=== PATIENT | female | born 2000 | race Caucasian/White ===

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

== ENCOUNTER 2018-07-08 18:45 | Emergency (ER) | payer OTHER ==
[2018-07-08] MEDS ORDERED: Metoclopramide IV* 5 MG/ML 2 ML VIAL IV SLOW PU ONE (19:54)
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
[2018-07-08 20:18] LABS: Hematocrit 33 % (35-47); Hemoglobin 11.5 g/dl (12.0-16.0); Mean Corpuscular HGB Conc 34 g/dl (31-36); Mean Corpuscular Hemoglobin 32 pg (27-31); Mean Corpuscular Volume 92 fL (80-97); Mean Platelet Volume 7.8 um3 (7.4-10.4); Platelet Count 253 10^3/ul (150-450); Red Blood Count 3.65 10^6/ul (4.00-5.40); Red Cell Distribution Width 13 % (10.5-15); White Blood Count 9.5 10^3/ul (3.5-10.8)
[2018-07-08 20:33] LABS: EGFR Non-African American 128.8 (>60)
[2018-07-08 20:47] LABS: Urine Appearance Clear; Urine Blood Negative (Negative); Urine Color Straw; Urine Ketones Negative (Negative); Urine Protein Negative (Negative); Urine Specific Gravity 1.005 (1.010-1.030); Urine Urobilinogen Negative (Negative)
[2018-07-08 23:16] VITALS: BP 105/54
--- NOTE | 2018-07-09 07:59 | RAD ---
Indication: Cramping, . Real-time sonography of the was performed. There is a single intrauterine gestation in breech presentation. There is anterior placenta without evidence of placenta previa. heart activity is noted at 1 to 28 bpm. movement is noted. Amniotic fluid index is 18.8. The cervix is long and closed. The BPD measures 5.2 cm corresponding to gestational age of 21 weeks 5 days. Head circumference measures 20.01 cm corresponding to gestational age of 22 weeks 2 days. Abdominal circumference measures 18.3 cm corresponding to gestational age of 23 weeks 2 days. Femur length measures 3.6 cm corresponding to gestational age of 21 weeks 2 days. Estimated gestational age by today's initial ultrasound is 22 weeks 2 days. Estimated date of delivery is November 09, 2018. Estimated weight is 499 g. Images of the anatomy is limited. Evaluation of the maternal right lower quadrant demonstrates no evidence of abnormal fluid collections. IMPRESSION: Single intrauterine gestation with gestational age of 22 weeks 2 days. The cervix is closed. Amniotic fluid is within normal limits. No evidence of placenta previa.
== END 2018-07-08 23:17 | disposition home or self-care (01) ==
LOC: ED 18:45
DX: O26.892 Other specified pregnancy related conditions, second trimester (principal); R61 Generalized hyperhidrosis; R10.2 Pelvic and perineal pain; R11.0 Nausea; Z3A.22 22 weeks gestation of pregnancy; F17.210 Nicotine dependence, cigarettes, uncomplicated
CPT/HCPCS: 36415; 76815; 80053; 81003; 85027; 96374; 99283; J2765

== ENCOUNTER 2018-11-08 08:08 | Inpatient (IN) | payer OTHER ==
--- NOTE | 2018-11-08 10:41 | HP ---
General Information - Reason for Visit active labor - General Information Maternal Age: 18 Grav: 1 Para: 0 SAB: 0 IEA: 0 Estimated Due Date: 11/15/18 Determined By: Early Ultrasound Maternal Blood Type and Rh: A Positive - Results this Serology/RPR Result: Non-Reactive Rubella Result: Immune HBsAg Result: Negative HIV Result: Negative GBS Culture Result: Negative Past Medical History Pertinent Past Medical History: Non-Contributory Pertinent Past Surgical History: See Records - tonsillectomy w adenoidectomy 2014 Pertinent Family History: See Records - asthma, colon CA, COPD - Antepartal Records Antepartal Records: Reviewed, Complicated by: - + chlamydia in JUVE at 36wks negative Review of Systems Constitutional: Uncomfortable CV Complaint: No Respiratory: Shortness of Breath: No Gastrointestinal: Nausea, Vomiting Genitourinary: No Dysuria, No Bleeding, No Leaking Fluid Musculoskeletal: Contractions Neurological: No Headache, No Visual Changes Movement: Normal Exam Allergies/Adverse Reactions: Allergies No Known Allergies Allergy (Verified 07/08/18 19:50) T: 99.6, P:76, R:16, BP: 122/72, O2:100 - Measurements Height: 5 ft 3 in Weight: 135 lb Weight in lbs: [id number] Body Mass Index (BMI): 23.9 Pre- Weight: 98 lb Weight Gained This : 37 lbs and 0 ozs - Exam Breast: Breast Exam Deferred CVA: No CVA Tenderness Extremities: No Edema Heart: Normal Rhythm/Heart Sounds HEENT: No Significant Findings Lungs: Clear Bilaterally Rectal: Rectal Exam Deferred Reflexes: DTR 2+ Thyroid: No Thyromegaly - Abdominal Exam Abdomen Exam: Non-Tender - Ultrasound/Biophysical Profile Ultrasound Status: Not Done Targeted Exam Findings Cervical Exam: 7cm Effacement: 90% Station: 0 Presenting Part: Vertex Membrane Status: Bulging Bleeding/Discharge: Bloody Show EFM Findings - External Monitor Findings Baseline Heart Rate: 150 External Monitor Findings: Accelerations Present, No Pattern of Variable or Late Decelerations, Variability Moderate, Baseline Stable Contractions: Regular, Moderate, 45-90 Seconds Contraction Frequency: 2-3 min Assessment/Plan - Assessment 18 y.o. , active labor - Plan Plan: Admit - Anticipate Vaginal Delivery Plan Comment: Pt requests pain mgmt - Date/Time of Admission Date of Admission: 11/08/18 Time of Admission: 10:00
[2018-11-08] MEDS ORDERED: OBEPIDURAL* 250 ML EPIDURAL ONE (10:50)
[2018-11-08 10:55] LABS: ABS Basophils 0.1 10^3/ul (0-0.2); ABS Eosinophils 0 10^3/ul (0-0.6); ABS Lymphocytes 1.6 10^3/ul (1.0-4.8); ABS Monocytes 0.8 10^3/ul (0-0.8); ABS Nucleated RBC 0 10^3/ul; Eosinophil % 0.1 %; Hematocrit 37 % (35-47); Lymphocyte % 7.1 %; Mean Corpuscular HGB Conc 33 g/dl (31-36); Mean Corpuscular Hemoglobin 30 pg (27-31); Mean Corpuscular Volume 91 fL (80-97); Mean Platelet Volume 8.4 fL (7.4-10.4); Nucleated Red Blood Cells % 0; Platelet Count 310 10^3/ul (150-450); Red Cell Distribution Width 14 % (10.5-15); White Blood Count 22.5 10^3/ul (3.5-10.8)
[2018-11-08] MEDS ORDERED: EPHEDrine (Pressors)* 50 MG/ML VIAL IV PUSH PRN (11:22)
[2018-11-08] MEDS ORDERED: Famotidine TAB* 20 MG PO PRN (11:22)
[2018-11-08] MEDS ORDERED: Sodium Citrate/Citric Acid* 15 ML UDC PO PRN (11:22)
[2018-11-08] MEDS ORDERED: Phenylephrine IV* 40 MCG/ML 10 ML SYRINGE IV PUSH PRN (11:22)
[2018-11-08] MEDS ORDERED: OBEPIDURAL* 250 ML EPIDURAL SCH (12:00)
[2018-11-08] MEDS ORDERED: Calcium Carbonate CHEW TAB* 500 MG (TUMS) ONE (12:35)
[2018-11-08] MEDS ORDERED: Calcium Carbonate CHEW TAB* 500 MG (TUMS) PO PRN (12:42)
[2018-11-08] MEDS ORDERED: Lidocaine 2% VISCOUS* 15 ML UDC ONE (15:56)
[2018-11-08] MEDS ORDERED: Oxytocin in LR* 20 UNITS/1,000 ML BAG IVPB ONE (16:08)
[2018-11-08] MEDS ORDERED: Misoprostol TAB* 200 MCG PR ONE (16:25)
[2018-11-08] MEDS ORDERED: Glycerin ADULT SUPP PR PRN (16:25)
[2018-11-08] MEDS ORDERED: Witch Hazel PAD* JAR TOPICAL PRN (16:25)
--- NOTE | 2018-11-08 16:30 | PROCNOTE ---
[facility] OB: Delivery Note - Delivery A Date of : 11/08/18 Time of : 16:02 Sex: Male Gestational Age in Weeks and Days at Delivery: 39 Weeks and 0 Days Delivery Method: Spontaneous Vaginal Labor: Spontaneous Amniotic Fluid: Clear Estimated Blood Loss: 350 Anesthesia/Analgesia: CEI for Labor Delivered By: Elvira Mcintyre - Nursery Level of Nursery: Regular/Bedside - Perineum Perineal Injury: Periurethral Laceration Perineal Repair: By Delivering Practioner - Events Delivery Events of Note: Pitocin Only After Delivery
[2018-11-08] MEDS ORDERED: Oxytocin in LR* 20 UNITS/1,000 ML BAG IVPB SCH (17:00)
[2018-11-08] MEDS ORDERED: Simethicone TAB* 80 MG TAB.CHEW PO SCH (17:30)
[2018-11-08] MEDS: Ibuprofen TAB* 600 MG PO PRN (18:11)
[2018-11-08] MEDS ORDERED: Gentamicin ADULT (*) 40 MG/ML VIAL IVPB ONE (19:39)
[2018-11-08] MEDS ORDERED: Gentamicin ADULT (*) 300 MG in NS 0.9% 100 ML* 100 ML IVPB ONE (20:00)
[2018-11-08] MEDS: Acetaminophen TAB* 325 MG PO PRN (20:19)
[2018-11-08] MEDS: Clindamycin 900 MG/D5W BAG(*) 900 MG/50 ML BAG IVPB SCH (21:02)
[2018-11-08] MEDS: Docusate CAP* 100 MG PO SCH (21:08)
[2018-11-09] MEDS: Clindamycin 900 MG/D5W BAG(*) 900 MG/50 ML BAG IVPB SCH ×4 (05:17→21:33)
[2018-11-09 07:23] LABS: Hematocrit 32 % (35-47); Hemoglobin 10.6 g/dl (12.0-16.0); Mean Corpuscular HGB Conc 33 g/dl (31-36); Mean Corpuscular Hemoglobin 31 pg (27-31); Mean Corpuscular Volume 92 fL (80-97); Mean Platelet Volume 8.1 fL (7.4-10.4); Platelet Count 244 10^3/ul (150-450); Red Blood Count 3.46 10^6/ul (4.00-5.40); Red Cell Distribution Width 14 % (10.5-15); White Blood Count 20.3 10^3/ul (3.5-10.8)
[2018-11-09 08:14] LABS: ABS Basophils 0.1 10^3/ul (0-0.2); ABS Eosinophils 0 10^3/ul (0-0.6); ABS Lymphocytes 1.7 10^3/ul (1.0-4.8); ABS Monocytes 1.7 10^3/ul (0-0.8); ABS Neutrophils 16.8 10^3/ul (1.5-7.7); ABS Nucleated RBC 0 10^3/ul; Eosinophil % 0.1 %; Lymphocyte % 8.2 %; Nucleated Red Blood Cells % 0
[2018-11-09] MEDS ORDERED: Ferrous Gluconate TAB* 324 MG TAB PO SCH (09:00)
[2018-11-09] MEDS: Ibuprofen TAB* 600 MG PO PRN ×2 (09:22→16:40)
[2018-11-09] MEDS: Docusate CAP* 100 MG PO SCH ×3 (09:22→20:57)
[2018-11-09] MEDS: Dibucaine 1% 28.35 GM TUBE PR PRN (09:30)
[2018-11-09] MEDS: Acetaminophen TAB* 325 MG PO PRN (13:45)
[2018-11-10] MEDS: Dibucaine 1% 28.35 GM TUBE PR PRN ×2 (03:08→11:09)
[2018-11-10] MEDS: Ibuprofen TAB* 600 MG PO PRN ×2 (03:48→11:09)
[2018-11-10 08:12] VITALS: BP 103/59
[2018-11-10] MEDS: Docusate CAP* 100 MG PO SCH (09:02)
== END 2018-11-10 12:31 | disposition home or self-care (01) | DRG 560 ==
LOC: MCHOBOUT 08:08 → MCHOB 08:35
PROVIDERS: ADMIT Midwife; ATTEND Midwife
PROC: 10E0XZZ Delivery of Products of Conception, External Approach (ICD-10-PCS; principal; 2018-11-08)
PROC: 10907ZC Drainage of Amniotic Fluid, Therapeutic from Products of Conception, Via Natural or Artificial Opening (ICD-10-PCS; 2018-11-08)
PROC: 0KQM0ZZ Repair Perineum Muscle, Open Approach (ICD-10-PCS; 2018-11-08)
DX: O71.82 Other specified trauma to perineum and vulva (principal); Z37.0 Single live birth; Z3A.39 39 weeks gestation of pregnancy
CPT/HCPCS: 36415; 85025; 86850; 86900; 86901; A9270-GY; J1580

== ENCOUNTER 2019-07-06 11:27 | Emergency (ER) | payer MEDICAID, OTHER ==
[2019-07-06 11:35] VITALS: BP 118/72
[2019-07-06] MEDS ORDERED: guaiFENesin ER TAB 600 MG PO ONE (11:54)
[2019-07-06] MEDS ORDERED: Ibuprofen TAB* 600 MG PO ONE (11:54)
--- NOTE | 2019-07-06 12:15 | ED ---
Throat Pain/Nasal Congestion - HPI Summary HPI Summary: This pt is a 18 Y/O F presenting to [facility] with her family and a CC of a sore throat and losing her voice. Patient states this began 3 days ago with a sore throat and now has congestion, and has a hoarse voice. She states that she also has a productive cough and is feeling relatively congested. She states that the pain increases when she swallows but states that it hasnt made eating any harder. No trouble breathing or trouble swallowing. She denies any fever, N/V, CP, and headaches. She has no alleviating factors. She had a tonsillectomy in 2016. - History of Current Complaint Chief Complaint: EDThroatPain Time Seen by Provider: 07/06/19 11:54 Hx Obtained From: Patient Onset/Duration: Sudden Onset, Lasting Days - 4, Still Present, Worse Since - today Severity: Mild Associated Signs And Symptoms: Positive: Negative - fever, N/V, CP, and headaches, Hoarseness, Sinus Discomfort Cough: Productive Related History: Smoking - E-cigs, previous smoker - Allergies/Home Medications Allergies/Adverse Reactions: Allergies Allergy/AdvReac Type Severity Reaction Status Date / Time No Known Allergies Allergy Verified 01/29/19 23:02 PMH/Surg Hx/FS Hx/Imm Hx Previously Healthy: No Endocrine/Hematology History: Denies: Hx Diabetes, Hx Thyroid Disease Cardiovascular History: Denies: Hx Congestive Heart Failure, Hx Hypertension Respiratory History: Reports: Hx Asthma Denies: Hx Chronic Obstructive Pulmonary Disease (COPD) GI History: Denies: Hx Ulcer History: Denies: Hx Renal Disease Sensory History: Denies: Hx Contacts or Glasses, Hx Deafness, Hx Hearing Aid Opthamlomology History: Denies: Hx Contacts or Glasses EENT History: Reports: Other - tonsillectomy Neurological History: Denies: Hx Dementia Psychiatric History: Denies: Hx Autism - Surgical History Surgery Procedure, Year, and Place: TONSILLECTOMY 2016 - Immunization History Date of Tetanus Vaccine: utd Date of Influenza Vaccine: none Immunizations Up to Date: Yes Infectious Disease History: No Infectious Disease History: Denies: Hx Clostridium Difficile, Hx Hepatitis, Hx Human Immunodeficiency Virus (HIV), Hx of Known/Suspected MRSA, Hx Shingles, Hx Tuberculosis, Hx Known/ Suspected VRE, Hx Known/Suspected VRSA, History Other Infectious Disease, Traveled Outside the [place] in Last 30 Days - Family History Known Family History: Positive: Cardiac Disease - paternal grandfather - Social History Occupation: Unemployed Lives: With Family Alcohol Use: None Substance Use Type: Reports: None Hx Tobacco Use: Yes Smoking Status (MU): Former Smoker Type: Cigarettes, eCigarettes - current Amount Used/How Often: 3 CIG/DAY Review of Systems Negative: Fever Positive: Sore Throat Positive: Cough - productive Negative: Vomiting, Nausea Negative: Headache All Other Systems Reviewed And Are Negative: Yes Physical Exam - Summary Physical Exam Summary: General: Well appearing, no distress HEENT: Mild errythema posterior oral pharynx, s/p tonsillectomy, no maxillary sinus tenderness, PERRL Cardiovascular: Skin is well perfused Pulmonary: No respiratory distress, no tachypnea, clear to auscultation Abdomen: Non-distended Skin: Warm, pink, dry MSK: No edema Psych: Normal affect Neuro: A&Ox3 Triage Information Reviewed: Yes Vital Signs On Initial Exam: Initial Vitals Temp Pulse Resp BP Pulse Ox 99.1 F 115 18 118/72 96 07/06/19 11:33 07/06/19 11:33 07/06/19 11:33 07/06/19 11:33 07/06/19 11:33 Vital Signs Reviewed: Yes Diagnostics - Vital Signs Vital Signs Temp Pulse Resp BP Pulse Ox 07/06/19 11:33 99.1 F 115 18 118/72 96 - Laboratory Lab Statement: Any lab studies that have been ordered have been reviewed, and results considered in the medical decision making process. EENT Course/Dx - Course Course Of Treatment: 18-year-old female with upper respiratory symptoms for 3 days. Physical exam well-appearing female, status post tonsillectomy, mild erythema of the posterior pharynx. No difficulty in breathing or trouble swallowing, no trismus. Treat conservatively w motrin, mucinex both low risk in breast feeding. - Diagnoses Provider Diagnoses: Sore throat (viral), Upper respiratory infection Discharge - Sign-Out/Discharge Documenting (check all that apply): Patient Departure - discharge Patient Received Moderate/Deep Sedation with Procedure: No - Discharge Plan Condition: Stable Disposition: HOME Patient Education Materials: Pharyngitis (ED), Upper Respiratory Infection (ED) Referrals: Loly Mahajan MD [Primary Care Provider] - 2 Days Additional Instructions: You were seen in the emergency department for upper respiratory symptoms. You can Motrin in breast-feeding which has been proven safe. You can take Mucinex as well which is low risk in breast feeding. If any studies were not completed at the time of discharge you will be called with the relevant results. Please follow up with your primary care doctor in next 2-3 days and return to emergency department for worsening or concerning symptoms. - Billing Disposition and Condition Condition: STABLE Disposition: Home - Attestation Statements Document Initiated by Honey: Yes Documenting Scribe: Jose Buckner Provider For Whom Honey is Documenting (Include Credential): Sherri Schroeder MD Scribe Attestation: Jose Petit, scribed for Sherri Schroeder MD on 07/06/19 at 1232. Scribe Documentation Reviewed: Yes Provider Attestation: The documentation as recorded by the Jose rangel accurately reflects the service I personally performed and the decisions made by Sherri montez MD Status of Scribe Document: Viewed
== END 2019-07-06 12:28 | disposition home or self-care (01) ==
LOC: ED 11:27
DX: J02.9 Acute pharyngitis, unspecified (principal); J06.9 Acute upper respiratory infection, unspecified; J45.909 Unspecified asthma, uncomplicated; F17.290 Nicotine dependence, other tobacco product, uncomplicated
CPT/HCPCS: 99282; A9270-GY

== ENCOUNTER 2019-07-07 13:40 | Emergency (ER) | payer OTHER ==
[2019-07-07 13:50] VITALS: BP 108/75
== END 2019-07-07 15:40 | disposition left against medical advice (07) ==
LOC: ED 13:40
DX: R09.81 Nasal congestion (principal); R05 Cough; Z53.21 Procedure and treatment not carried out due to patient leaving prior to being seen by health care provider

== ENCOUNTER 2019-07-07 14:57 | Emergency (ER) | payer OTHER ==
[2019-07-07 15:11] VITALS: BP 100/50
[2019-07-07] MEDS ORDERED: predniSONE TAB* 20 MG PO ONE (15:17)
[2019-07-07] MEDS ORDERED: Albuterol HFA INHALER* 8 gm MDI INH ONE (15:18)
--- NOTE | 2019-07-07 15:23 | UC ---
Respiratory Complaint HPI - HPI Summary HPI Summary: 18 yo female with 4-5 days of nasal congestion/post nasal drip/facial pressure and cough chest tight hx asthma no f/c no n/v/d - History of Current Complaint Chief Complaint: UCRespiratory Stated Complaint: HEADACHE , COUGH, Time Seen by Provider: 07/07/19 15:04 Hx Obtained From: Patient Hx Last Menstrual Period: 1 week ago Onset/Duration: Gradual Onset, Lasting Days Timing: Constant Severity Initially: Mild Severity Currently: Moderate Pain Intensity: 5 Pain Scale Used: 0-10 Numeric Character: Cough: Productive - at times Aggravating Factors: Nothing Alleviating Factors: Nothing Associated Signs And Symptoms: Positive: Wheezing, Nasal Congestion, Hoarseness , Sinus Discomfort - Allergies/Home Medications Allergies/Adverse Reactions: Allergies Allergy/AdvReac Type Severity Reaction Status Date / Time No Known Allergies Allergy Verified 07/07/19 15:11 Home Medications: Home Medications [id number] ER TAB [Mucinex*] 600 mg PO DAILY 07/07/19 [History Confirmed ] PMH/Surg Hx/FS Hx/Imm Hx Previously Healthy: Yes Respiratory History: Asthma - Surgical History Surgical History: Yes Surgery Procedure, Year, and Place: TONSILLECTOMY 2016 - Family History Known Family History: Positive: Cardiac Disease - paternal grandfather - Social History Alcohol Use: None Substance Use Type: None Smoking Status (MU): Light Every Day Tobacco Smoker Type: Cigarettes, eCigarettes Amount Used/How Often: 3 CIG/DAY - Immunization History Most Recent Influenza Vaccination: Unknown Most Recent Pneumonia Vaccination: Unknown Vaccination Up to Date: Yes Review of Systems All Other Systems Reviewed And Are Negative: Yes Constitutional: Positive: Fatigue Skin: Positive: Negative Eyes: Positive: Negative ENT: Positive: Sore Throat, Nasal Discharge, Sinus Congestion, Sinus Pain/ Tenderness Respiratory: Positive: Cough Cardiovascular: Positive: Negative Gastrointestinal: Positive: Negative Genitourinary: Positive: Negative Motor: Positive: Negative Neurovascular: Positive: Negative Musculoskeletal: Positive: Negative Neurological: Positive: Negative Psychological: Positive: Negative Physical Exam Triage Information Reviewed: Yes Appearance: Well-Appearing, No Pain Distress, Well-Nourished Vital Signs: Initial Vital Signs Temp 99.0 F 07/07/19 15:05 Pulse 97 07/07/19 15:05 Resp 17 07/07/19 15:05 BP 100/50 07/07/19 15:05 Pulse Ox 97 07/07/19 15:05 Vital Signs Reviewed: Yes Eyes: Positive: Conjunctiva Clear ENT: Positive: Hearing grossly normal, Pharynx normal, Nasal congestion, TMs normal, Hoarse voice, Sinus tenderness - sl, Uvula midline. Negative: Nasal drainage, Tonsillar swelling, Tonsillar exudate, Trismus, Muffled voice Neck: Positive: Supple, Nontender, No Lymphadenopathy Respiratory: Positive: Lungs clear, Normal breath sounds, No respiratory distress, Wheezing - with forced expiration Cardiovascular: Positive: RRR, No Murmur Musculoskeletal: Positive: ROM Intact, No Edema Neurological: Positive: Alert Psychological Exam: Normal Skin Exam: Normal Respiratory Course/Dx - Differential Dx/Diagnosis Provider Diagnosis: Viral URI with cough, Laryngitis, Bronchospasm Discharge - Sign-Out/Discharge Documenting (check all that apply): Patient Departure All imaging exams completed and their final reports reviewed: No Studies - Discharge Plan Condition: Stable Disposition: HOME Patient Education Materials: Laryngitis (ED), Bronchospasm (ED) Referrals: Loly Mahajan MD [Primary Care Provider] - 5 Days Additional Instructions: Recheck for new or worsening symptoms rest fluids - Billing Disposition and Condition Condition: STABLE Disposition: Home
== END 2019-07-07 15:34 | disposition home or self-care (01) ==
LOC: UCEAST 14:57
DX: J06.9 Acute upper respiratory infection, unspecified (principal); J04.0 Acute laryngitis; J98.01 Acute bronchospasm; J45.909 Unspecified asthma, uncomplicated; F17.210 Nicotine dependence, cigarettes, uncomplicated
CPT/HCPCS: 99212; A9270-GY; G0463; J7512

== ENCOUNTER 2020-01-22 18:04 | Emergency (ER) | payer OTHER ==
--- OUTSIDE RECORDS SUMMARY | 2020-01-22 18:07 | XMS REPORT | Summary of Care ---
:2000 Author Organization [facility] Address [address] [facility] [place] [address] Care Team Providers Name Role Phone Loly Mahajan Primary Care Provider Reason for Visit Reason Comments Follow Up 3mth to [facility], stated has been getting headache since being put on this BC Encounter Details Date Type Department Care Team Description 01/12/2020 Office Visit Usha Mahajan, Pelvic pain (Primary Dx); Practice MD Loly Chronic nonintractable headache, unspecified headache type [address] [place] [address] [place] [address] [phone] Allergies Active Allergy Reactions Severity Noted Date Comments Tramadol GI Reaction 12/27/2015 Nausea documented as of this encounter (statuses as of 01/12/2020) Medications Medication Sig Dispensed Refills Start Date End Date Status albuterol HFA Take 2 Puffs by 1 Inhaler 5 07/09/2019 Active (VENTOLIN HFA) 108 inhalation EVERY (90 Base) MCG/ACT FOUR HOURS Inhalation Aero NEEDED (SOB). SolnIndications: Mild intermittent asthma without complication Norgestimate-Ethin Take 1 Tab by 28 Tab 3 10/22/2019 Active yl Estradiol mouth DAILY. (ORTHO TRI-CYCLEN, 28,) 0.18/0.215/0.25 MG-35 MCG Oral Tab Norethindrone, take 1 tablet by 0 07/31/2019 Discontinued Contraceptive, mouth once daily 0 0.35 MG Oral Tab AT THE SAME TIME EACH DAY -TAKE EVERY PILL IN THE PACKAGE documented as of this encounter (statuses as of 01/12/2020) Active Problems Problem Noted Date Abdominal pain 09/24/2016 documented as of this encounter (statuses as of 01/12/2020) Immunizations Name Administration Dates Next Due Influenza (IM) Preservative Free 10/12/2019 TDAP Vaccine 08/17/2018 documented as of this encounter Social History Tobacco Use Types Packs/Day Years Used Date Current Some Day Smoker Cigarettes 0.1 1 Smokeless Tobacco: Never Used Alcohol Use Drinks/Week oz/Week Comments Not Asked 0 Standard drinks or equivalent 0.0 Sex Assigned at Date Recorded Not on file documented as of this encounter Last Filed Vital Signs Vital Sign Reading Time Taken Comments Blood Pressure 120/60 01/12/2020 10:50 AM EST Pulse 77 01/12/2020 10:50 AM EST Temperature 36.9 01/12/2020 10:50 AM C (98.5 EST F) Respiratory Rate - - Oxygen Saturation 99% 01/12/2020 10:50 AM EST Inhaled Oxygen Concentration - - Weight 50.3 kg (110 lb 14.4 oz) 01/12/2020 10:50 AM EST Height 160 cm (5' 3") 01/12/2020 10:50 AM EST Body Mass Index 19.65 01/12/2020 10:50 AM EST documented in this encounter Patient Instructions Patient InstructionsLoly Mahajan MD - 01/12/2020 10:40 AM EST1. Schedule physical with PAP smear 2. Please read about HPV vaccination Patient Education Human Papillomavirus (HPV) Vaccine The Basics Written by the doctors and editors at [facility] What is the human papillomavirus (HPV) vaccine?The HPV vaccine helps keep people from getting infected with a germ called "human papillomavirus ," or "HPV." Vaccines can prevent certain serious or deadly infections. They work by preparing the body to fight the germs that cause the infections. Vaccines are also called "vaccinations" or "immunizations." Why should I get the HPV vaccine?The HPV vaccine can help keep you from getting an HPV infection. There are different types of HPV, which can lead to different problems. Some of these problems can be serious: An HPV infection in the genitals can cause cancer of the cervix (cervical cancer) or vagina (vaginal cancer) in women (figure 1) and cancer of the penis ( penile cancer) in men. Other types of HPV can cause genital warts in women and men. An HPV infection around the anus can cause cancer of the anus (anal cancer ) in women and men. An HPV infection in the mouth and throat can cause cancer of the mouth and throat in women and men. Most people who have an HPV infection in the genitals or mouth and throat never have problems with cancer. Still, it is hard to know which people will get cancer after an HPV infection. The HPV vaccineis a good way to prevent getting infected in the first place. How can people get infected with HPV?People can get infected with HPV if their mouth or genitals touch the genitals of someone who is infected. This mainly happens through oral, vaginal, or anal sex. But HPV can also be spread through close [id number]-[id number] contact, even without having sex. Are different HPV vaccines available?Yes, 3 different HPV vaccines are available. But they are not all available everywhere, so the one you get will depend on where you live. All HPV vaccines come in shots. The dosing for the shots depends on the person's age: People younger than 15 should get 2 doses, at least 6 months apart. People 15 and older should get 3 doses over 6 months. At what age do people get the HPV vaccine?Most doctors recommend that people get the HPV vaccine at age 11 or 12. But people can get the vaccine any time from age 9 to 26. Women shouldnot get the vaccine if they are . The HPV vaccine works best when it is given before a person gets infected with HPV. The HPV vaccine can't cure an HPV infection that a person already has. That 's why it is better to get the HPV vaccinebefore you have sex for the first time. If you have already had sex, talk with your doctor or nurse.He or she might recommend that you get the HPV vaccine anyway, because it could still help you. What side effects can the HPV vaccine cause?The HPV vaccine can cause redness, swelling, or soreness where the shot was given. It can also cause people to pass out, but this is uncommon. To make sure that this doesn't happen, your doctor or nurse will have you stay on the exam table for a few minutes after the shot. Does the HPV vaccine always work?The vaccine is very good at preventing the types of HPV infection that can cause cervical and vaginal cancer in women. It might lower the risk of othertypes of cancer, too. The vaccine is also very good at preventing the types of HPV that cause genital warts. The vaccine is not perfect. In some cases, people who get it can still get an HPV infection. But it is still the best way to lower the risk of HPV. Does the HPV vaccine prevent other diseases you catch through sex? No. The HPV vaccine does not keep people from getting or spreading other diseases that are spread through sex. To keepfrom getting or spreading a disease that is spread through sex, you should always use a condom. Do I need to be checked for cervical cancer if I get the vaccine? Yes. All women, including those who get the HPV vaccine, should be checked on a routine schedule for cervical cancer. Most women are checked using a test called a "pap smear" starting at age 21. All topics are updated as new evidence becomes available and our peer review process is complete. This topic retrieved from [employer] on: Oct 05, 2019. Topic 30701 Version 12.0 Release: 27.4.5 - C27.318 ?2019?[employer] and/or its affiliates.?All rights reserved. figure 1: Female reproductive anatomy These are the internal organs that make up a woman's reproductive system. Graphic 86533 Version 5.0 Consumer Information Use and Disclaimer This information is not specific medical advice and does not replace information you receive from your health care provider. This is only a brief summary of general information. It does NOT include allinformation about conditions, illnesses, injuries, tests, procedures, treatments, therapies, discharge instructions or life-style choices that may apply to you. You must talk with your health care provider for complete information about your health and treatment options. This information should not beused to decide whether or not to accept your health care provider's advice, instructions or recommendations. Only your health care provider has the knowledge and training to provide advice that is right for you.The use of [employer] content is governed by the [employer] Terms of Use. 2019 [employer]. All rights reserved. Copyright ?2019?[employer] and/or its affiliates.?All rights reserved. documented in this encounter Progress Notes Loly Mahajan MD - 01/12/2020 10:40 AM EST Patient: Araceli Mason Date of Service: 01/12/2020 Subjective: Araceli Mason is a 19-y.o. female who presents for Chief Complaint Patient presents with ? Follow Up 3mth to [facility], stated has been getting headache since being put on this BC Patient comes 3 months follow up after starting BCP for history of ovarian cysts No other episodes of pelvic pain Noticed more frequent mild headaches since started the pills BP is normal. No breakthrough bleedings No past medical history on file. Outpatient Medications as of 01/12/2020 Medication Sig Dispense Refill ? albuterol HFA (VENTOLIN HFA) 108 (90 Base) MCG/ACT Inhalation Aero Soln Take 2 Puffs by inhalation EVERY FOUR HOURS NEEDED (SOB). 1 Inhaler 5 ? Norgestimate-Ethinyl Estradiol (ORTHO TRI-CYCLEN, 28,) 0.18/0.215/0.25 MG-35 MCG Oral Tab Take 1 Tab by mouth DAILY. 28 Tab 3 No current facility-administered medications on file as of 01/12/2020. Allergies Allergen Reactions ? Tramadol GI Reaction Nausea Review of Systems: All remaining review of systems was negative. Objective: BP 120/60 (BP Location: Left arm, Patient Position: Sitting) Pulse 77 Temp 98.5 F (36.9 C) Ht 5' 3" (1.6 m) Wt 110 lb 14.4 oz (50.3 kg) SpO2 99% BMI 19.65 kg/m2 General appearance: alert, well appearing, and in no distress. Neurological exam reveals alert, oriented, normal speech, no focal findings or movement disorder noted. ICD-9-CM ICD-10-CM 1. Pelvic pain Resoled on BCP [id number] R10.2 2. Chronic nonintractable headache, unspecified headache type Patient doesn't want to change to lower estrogen BCP in this point Wants to wait 784.0 R51 Patient Instructions 1. Schedule physical with PAP smear 2. Please read about HPV vaccination Patient Education Human Papillomavirus (HPV) Vaccine The Basics Written by the doctors and editors at [employer] What is the human papillomavirus (HPV) vaccine?The HPV vaccine helps keep people from getting infected with a germ called "human papillomavirus ," or "HPV." Vaccines can prevent certain serious or deadly infections. They work by preparing the body to fight the germs that cause the infections. Vaccines are also called "vaccinations" or "immunizations." Why should I get the HPV vaccine?The HPV vaccine can help keep you from getting an HPV infection. There are different types of HPV, which can lead to different problems. Some of these problems can be serious: An HPV infection in the genitals can cause cancer of the cervix (cervical cancer) or vagina (vaginal cancer) in women (figure 1) and cancer of the penis ( penile cancer) in men. Other types of HPV can cause genital warts in women and men. An HPV infection around the anus can cause cancer of the anus (anal cancer ) in women and men. An HPV infection in the mouth and throat can cause cancer of the mouth and throat in women and men. Most people who have an HPV infection in the genitals or mouth and throat never have problems with cancer. Still, it is hard to know which people will get cancer after an HPV infection. The HPV vaccineis a good way to prevent getting infected in the first place. How can people get infected with HPV?People can get infected with HPV if their mouth or genitals touch the genitals of someone who is infected. This mainly happens through oral, vaginal, or anal sex. But HPV can also be spread through close [id number]-[id number] contact, even without having sex. Are different HPV vaccines available?Yes, 3 different HPV vaccines are available. But they are not all available everywhere, so the one you get will depend on where you live. All HPV vaccines come in shots. The dosing for the shots depends on the person's age: People younger than 15 should get 2 doses, at least 6 months apart. People 15 and older should get 3 doses over 6 months. At what age do people get the HPV vaccine?Most doctors recommend that people get the HPV vaccine at age 11 or 12. But people can get the vaccine any time from age 9 to 26. Women shouldnot get the vaccine if they are . The HPV vaccine works best when it is given before a person gets infected with HPV. The HPV vaccine can't cure an HPV infection that a person already has. That 's why it is better to get the HPV vaccinebefore you have sex for the first time. If you have already had sex, talk with your doctor or nurse.He or she might recommend that you get the HPV vaccine anyway, because it could still help you. What side effects can the HPV vaccine cause?The HPV vaccine can cause redness, swelling, or soreness where the shot was given. It can also cause people to pass out, but this is uncommon. To make sure that this doesn't happen, your doctor or nurse will have you stay on the exam table for a few minutes after the shot. Does the HPV vaccine always work?The vaccine is very good at preventing the types of HPV infection that can cause cervical and vaginal cancer in women. It might lower the risk of othertypes of cancer, too. The vaccine is also very good at preventing the types of HPV that cause genital warts. The vaccine is not perfect. In some cases, people who get it can still get an HPV infection. But it is still the best way to lower the risk of HPV. Does the HPV vaccine prevent other diseases you catch through sex? No. The HPV vaccine does not keep people from getting or spreading other diseases that are spread through sex. To keepfrom getting or spreading a disease that is spread through sex, you should always use a condom. Do I need to be checked for cervical cancer if I get the vaccine? Yes. All women, including those who get the HPV vaccine, should be checked on a routine schedule for cervical cancer. Most women are checked using a test called a "pap smear" starting at age 21. All topics are updated as new evidence becomes available and our peer review process is complete. This topic retrieved from [employer] on: Oct 05, 2019. Topic 39298 Version 12.0 Release: 27.4.5 - C27.318 ?2019?[employer]. and/or its affiliates.?All rights reserved. figure 1: Female reproductive anatomy These are the internal organs that make up a woman's reproductive system. Graphic 56411 Version 5.0 Consumer Information Use and Disclaimer This information is not specific medical advice and does not replace information you receive from your health care provider. This is only a brief summary of general information. It does NOT include allinformation about conditions, illnesses, injuries, tests, procedures, treatments, therapies, discharge instructions or life-style choices that may apply to you. You must talk with your health care provider for complete information about your health and treatment options. This information should not beused to decide whether or not to accept your health care provider's advice, instructions or recommendations. Only your health care provider has the knowledge and training to provide advice that is right for you.The use of [employer] content is governed by the [employer] Terms of Use. 2019 [employer]. All rights reserved. Copyright ?2019?[employer] and/or its affiliates.?All rights reserved. Author: Loly Mahajan MD documented in this encounter Plan of Treatment Date Type Specialty Care Team Description 02/10/2020 Office Visit Family Practice Loly Mahajan MD [address] [id number] [phone] Health Maintenance Due Date Last Done Comments PNEUMOCOCCAL 0-64 YRS (1 of 1 2004 - PPSV23) HPV IMMUNIZATION SERIES (1 - 2009 Female 2-dose series) PAP SMEAR 2019 DEPRESSION SCREENING 05/04/2020 05/04/2019 CHLAMYDIA SCREENING 10/12/2020 10/12/2019, 10/16/2018 DTaP/Tdap/Td Vaccines (2 - 08/17/2028 08/17/2018 Tdap) HEPATITIS A IMMUNIZATION Aged Out No longer eligible based SERIES on patient's age to complete this topic MENINGOCOCCAL VACCINE IMM Aged Out No longer eligible based on patient's age to complete this topic documented as of this encounter Results Not on filedocumented in this encounter Visit Diagnoses Diagnosis Pelvic pain Chronic nonintractable headache, unspecified headache type documented in this encounter Guarantor Name Account Type Relation to Date of Phone Billing Address Patient Araceli Mason Personal/Famil 2000 [address] (Home) [address] [phone] [place], [place] (Work) [id number] documented as of this encounter
[2020-01-22 18:13] VITALS: BP 116/64
--- NOTE | 2020-01-22 18:42 | UC ---
Hand/Wrist HPI - HPI Summary HPI Summary: punched a cupboard door today pain in right 4/5 fingers and ulnar aspect of hand -- - History Of Current Complaint Chief Complaint: UCUpperExtremity Stated Complaint: HAND INJURY Time Seen by Provider: 01/22/20 18:24 Hx Obtained From: Patient Hx Last Menstrual Period: 1 week ago ?: No Mechanism Of Injury: puched a cupboard Onset/Duration: Sudden Onset Pain Intensity: 4 Pain Scale Used: 0-10 Numeric Character Of Pain: Aching, Stiffness Aggravating Factor(s): Movement Alleviating Factor(s): Nothing Associated Signs And Symptoms: Positive: Swelling, Bruising Related History: Dominant Hand Right - Allergies/Home Medications Allergies/Adverse Reactions: Allergies Allergy/AdvReac Type Severity Reaction Status Date / Time tramadol Allergy Altered Verified 01/22/20 18:13 Mental Status Home Medications: Home Medications Norethindrone 1 tab PO DAILY 01/29/19 [History Confirmed 01/22/20] PMH/Surg Hx/FS Hx/Imm Hx Previously Healthy: Yes - Surgical History Surgical History: Yes Surgery Procedure, Year, and Place: TONSILLECTOMY 2016 - Family History Known Family History: Positive: Cardiac Disease - paternal grandfather - Social History Occupation: Unemployed Lives: With Family Alcohol Use: Rare Substance Use Type: None Smoking Status (MU): Light Every Day Tobacco Smoker Type: Cigarettes, eCigarettes Amount Used/How Often: 3 CIG/DAY - Immunization History Most Recent Influenza Vaccination: Unknown Most Recent Pneumonia Vaccination: Unknown Vaccination Up to Date: Yes Review of Systems All Other Systems Reviewed And Are Negative: Yes Constitutional: Positive: Negative Skin: Positive: Bruising - right hand4/5 mc area Eyes: Positive: Negative ENT: Positive: Negative Respiratory: Positive: Negative Cardiovascular: Positive: Negative Gastrointestinal: Positive: Negative Genitourinary: Positive: Negative Motor: Positive: Negative Neurovascular: Positive: Negative Musculoskeletal: Positive: Arthralgia - right hand Neurological/Mental Status: Positive: Negative Psychological: Positive: Negative Is Patient Immunocompromised?: No Physical Exam Triage Information Reviewed: Yes Appearance: Well-Appearing, No Pain Distress, Well-Nourished Vital Signs: Initial Vital Signs Temp 99.4 F 01/22/20 18:08 Pulse 84 01/22/20 18:08 Resp 18 01/22/20 18:08 BP 116/64 01/22/20 18:08 Pulse Ox 99 01/22/20 18:08 Vital Signs Reviewed: Yes Eye Exam: Normal Eyes: Positive: Conjunctiva Clear ENT Exam: Normal ENT: Positive: Normal ENT inspection, Hearing grossly normal. Negative: Trismus , Muffled voice, Hoarse voice Dental Exam: Normal Neck exam: Normal Neck: Positive: Supple, Nontender, No Lymphadenopathy Respiratory Exam: Normal Respiratory: Positive: Chest non-tender, Lungs clear, Normal breath sounds, No respiratory distress, No accessory muscle use Cardiovascular Exam: Normal Cardiovascular: Positive: RRR, No Murmur, Pulses Normal, Brisk Capillary Refill Musculoskeletal Exam: Normal Musculoskeletal: Positive: Strength Intact, ROM Intact, No Edema Neurological Exam: Normal Neurological: Positive: Alert, Muscle Tone Normal Psychological Exam: Normal Skin Exam: Normal Diagnostics - Radiology No standard instances Radiology Interpretation Completed By: ED Physician - no fracture Hand/Wrist Course/Dx - Course Course Of Treatment: jenna tape sophia wrap ice ibuprofen, final report will be available in the am and patient will be notified of any change - Differential Dx/Diagnosis Provider Diagnosis: Contusion of right hand including fingers Discharge ED - Sign-Out/Discharge Documenting (check all that apply): Patient Departure All imaging exams completed and their final reports reviewed: No - Discharge Plan Condition: Stable Disposition: HOME Patient Education Materials: Ibuprofen (By mouth), Contusion in Adults (ED), R.I.C.E. Treatment (ED) Referrals: Loly Mahajan MD [Primary Care Provider] - If Needed - Billing Disposition and Condition Condition: STABLE Disposition: Home
--- NOTE | 2020-01-23 14:38 | UC ---
- Progress Note Progress Note: Reviewed Dr. Gordon's read: no acute osseous injury of the hand, no change from wet read. No change in plan. Course/Dx - Diagnoses Provider Diagnoses: Contusion of right hand including fingers Discharge ED - Sign-Out/Discharge Documenting (check all that apply): Post-Discharge Follow Up All imaging exams completed and their final reports reviewed: Yes - Discharge Plan Condition: Stable Disposition: HOME Patient Education Materials: Ibuprofen (By mouth), Contusion in Adults (ED), R.I.C.E. Treatment (ED) Referrals: Loly Mahajan MD [Primary Care Provider] - If Needed - Billing Disposition and Condition Condition: STABLE Disposition: Home
== END 2020-01-22 19:32 | disposition home or self-care (01) ==
LOC: UCEAST 18:04
DX: S60.221A Contusion of right hand, initial encounter (principal); F17.210 Nicotine dependence, cigarettes, uncomplicated; Z88.5 Allergy status to narcotic agent; W22.03XA Walked into furniture, initial encounter; Y92.9 Unspecified place or not applicable
CPT/HCPCS: 99212; G0463

== ENCOUNTER 2021-08-20 03:43 | Inpatient (IN) ==
[2021-08-20] MEDS ORDERED: Buffered Lidocaine 1% SYRIN 1 ml INTRADERM ONE (03:46)
[2021-08-20] MEDS ORDERED: Lactated Ringers 1000 ml BAG 1,000 ML IV ONE (03:46)
[2021-08-20 03:55] LABS: Hematocrit 31 % (35-47); Hemoglobin 10.2 g/dL (12.0-16.0); Mean Corpuscular HGB Conc 32 g/dL (31-36); Mean Corpuscular Hemoglobin 29 pg (27-31); Mean Corpuscular Volume 90 fL (80-97); Mean Platelet Volume 8.7 fL (7.4-10.4); Platelet Count 341 10^3/uL (150-450); Red Blood Count 3.51 10^6 /uL (3.70-4.87); Red Cell Distribution Width 17 % (10-15); White Blood Count 21.4 10^3/uL (3.5-10.8)
[2021-08-20] MEDS ORDERED: Lactated Ringers 1000 ml BAG 1,000 ML IV SCH ×2 (04:00→06:00)
[2021-08-20 04:18] LABS: ABS Basophils 0.2 10^3/ul (0-0.2); ABS Eosinophils 0.1 10^3/ul (0-0.6); ABS Lymphocytes 3.8 10^3/ul (1.0-4.8); ABS Monocytes 1.8 10^3/ul (0-0.8); ABS Neutrophils 15.6 10^3/ul (1.5-7.7); Eosinophil % 0.7 %; Lymphocyte % 17.6 %; Nucleated Red Blood Cells % 0.1
[2021-08-20] MEDS ORDERED: OBEPIDURAL 250 ML EPIDURAL ONE (04:24)
[2021-08-20 04:36] LABS: Urine Benzodiazepine Screen None Detected (None Detect); Urine Cannabinoids Screen Presumptive Positive (None Detect); Urine Opiates Screen None Detected (None Detect)
[2021-08-20] MEDS ORDERED: Oxytocin in LR 20 UNITS/1,000 ML BAG IVPB ONE (04:58)
[2021-08-20] MEDS: Oxytocin in LR 20 UNITS/1,000 ML BAG IVPB SCH ×2 (05:00→13:47)
[2021-08-20] MEDS ORDERED: Dibucaine 1% OINT 28.35 GM TUBE PR PRN (05:08)
[2021-08-20] MEDS ORDERED: Witch Hazel PAD JAR TOPICAL PRN (05:08)
[2021-08-20] MEDS ORDERED: Flu vaccine *QUAD* 2021-22* 0.5 ML SYRINGE IM ONE (05:09)
[2021-08-20] MEDS ORDERED: Ferric Gluconate IV 125 MG in NS 0.9% 100 ml BAG 100 ML IVPB ONE (05:11)
[2021-08-20 05:47] LABS: Urine Appearance Cloudy; Urine Bilirubin Negative (Negative); Urine Blood 3+ (Negative); Urine Color Yellow; Urine Glucose Negative (Negative); Urine Ketones Negative (Negative); Urine Nitrite Negative (Negative); Urine Protein 1+(30 mg/dL) (Negative); Urine Specific Gravity 1.013 (1.002-1.030); Urine Urobilinogen Negative (Negative)
[2021-08-20 05:57] LABS: Urine Bacteria Absent (Absent); Urine Red Blood Cell 3+(>10/hpf) (Absent); Urine Squamous Epithelial Cell Present (Absent); Urine White Blood Cell 3+(>20/hpf) (Absent)
[2021-08-20 15:15] LABS: Hematocrit 33 % (35-47); Hemoglobin 10.7 g/dL (12.0-16.0); Mean Corpuscular HGB Conc 33 g/dL (31-36); Mean Corpuscular Hemoglobin 29 pg (27-31); Mean Corpuscular Volume 89 fL (80-97); Mean Platelet Volume 8.7 fL (7.4-10.4); Platelet Count 348 10^3/uL (150-450); Red Blood Count 3.67 10^6 /uL (3.70-4.87); Red Cell Distribution Width 16 % (10-15); White Blood Count 22.1 10^3/uL (3.5-10.8)
[2021-08-20 15:17] LABS: ABS Basophils 0.1 10^3/ul (0-0.2); ABS Lymphocytes 2.3 10^3/ul (1.0-4.8); ABS Monocytes 1.7 10^3/ul (0-0.8); Eosinophil % 0.1 %; Lymphocyte % 10.3 %; Nucleated Red Blood Cells % 0.1
[2021-08-21 07:43] LABS: ABS Basophils 0.1 10^3/ul (0-0.2); ABS Eosinophils 0.1 10^3/ul (0-0.6); ABS Lymphocytes 2.4 10^3/ul (1.0-4.8); ABS Monocytes 1.5 10^3/ul (0-0.8); ABS Neutrophils 14.1 10^3/ul (1.5-7.7); Eosinophil % 0.3 %; Hematocrit 29 % (35-47); Hemoglobin 9.8 g/dL (12.0-16.0); Lymphocyte % 13.4 %; Mean Corpuscular HGB Conc 33 g/dL (31-36); Mean Corpuscular Hemoglobin 29 pg (27-31); Mean Corpuscular Volume 88 fL (80-97); Mean Platelet Volume 8.3 fL (7.4-10.4); Platelet Count 345 10^3/uL (150-450); Red Blood Count 3.32 10^6 /uL (3.70-4.87); Red Cell Distribution Width 16 % (10-15); White Blood Count 18.2 10^3/uL (3.5-10.8)
[2021-08-21 09:09] VITALS: BP 101/54
[2021-08-21] MEDS ORDERED: Tetan/Diph/Pertus SYR(Tdap) 0.5 ML SYR(BOOSTRIX) use SYR contains LATEX IM ONE (11:15)
== END 2021-08-21 12:00 | disposition home or self-care (01) | DRG 560 ==
LOC: MCHOBOUT 03:43 → MCHOB 03:45
PROVIDERS: ADMIT Midwife; ATTEND Midwife